=== PATIENT | female | born 1980 | race Caucasian/White ===

== ENCOUNTER 2016-11-08 18:10 | Emergency (ER) | payer BC ==
[2016-11-08 23:22] LABS: RED BLOOD COUNT 4.61 M/UL (4.00-5.10); WHITE BLOOD COUNT 12.2 K/UL (4.5-11.0)
[2016-11-08 23:32] LABS: BUN/CREATININE RATIO 16 (0-10)
== END 2016-11-09 01:54 | disposition home or self-care (01) ==
LOC: ER1 18:10
PROVIDERS: Physician Assistant
DX: O21.0 Mild hyperemesis gravidarum (principal); Z3A.16 16 weeks gestation of pregnancy
CPT/HCPCS: 36415; 80053; 81001; 83690; 85025; 87086; 96361; 96372; 96374; 99284; J0500; J2765

== ENCOUNTER → 2016-12-06 | Outpatient (CLI) | payer OTHER, BC | LOC: LAB 11:41 | DX: Z02.1 Encounter for pre-employment examination (principal) | CPT/HCPCS: 86706; 86787 ==

== ENCOUNTER 2021-04-08 14:35 | Emergency (ER) | payer OTHER ==
[~2021-04-08] VITALS: Ht 165.1 cm; Wt 77.1 kg
[~2021-04-08 14:35] MED LIST: VIBRAMYCIN100 MG PO; ZOFRAN4 MG PO; [UNRECOGNIZED DRUG - SUPPLY]
== END 2021-04-08 17:38 | disposition home or self-care (01) ==
LOC: ER1 14:35
DX: Z23 Encounter for immunization (principal); U07.1 COVID-19
CPT/HCPCS: 71045; 99284; M0243